=== PATIENT | male | born 1995 | race Caucasian/White ===

== ENCOUNTER 2024-12-28 14:17 | Outpatient (CLI) | payer OTHER, SELFPAY ==
--- NOTE | ~2024-12-28 | MR_ITS ---
EXAMINATION: MR cervical spine wo con DATE: 12/28/2024 14:50 INDICATION: Neck pain. TECHNIQUE: Magnetic resonance imaging (MRI) of the cervical spine was performed without intravenous contrast. COMPARISON: None FINDINGS: Bone alignment is normal. Vertebral body heights are normal. Intervertebral disc heights are normal. The spinal cord signal intensity is normal. The following disc levels are specifically discussed: C2-C3: The disc does not extend beyond the endplate margin. There is no uncovertebral joint osteoarthritis. There is no facet joint osteoarthritis. There is no neural foraminal stenosis. There is no central canal stenosis. C3-C4: The disc does not extend beyond the endplate margin. There is no uncovertebral joint osteoarthritis. There is mild left facet joint osteoarthritis. There is no neural foraminal stenosis. There is no central canal stenosis. C4-C5: The disc does not extend beyond the endplate margin. There is mild left uncovertebral joint osteoarthritis. There is mild bilateral facet joint osteoarthritis. There is no neural foraminal stenosis. There is no central canal stenosis. C5-C6: The disc does not extend beyond the endplate margin. There is mild left uncovertebral joint osteoarthritis. There is mild right facet joint osteoarthritis. There is no neural foraminal stenosis. There is no central canal stenosis. C6-C7: The disc does not extend beyond the endplate margin. There is mild left uncovertebral joint osteoarthritis. There is no facet joint osteoarthritis. There is no neural foraminal stenosis. There is no central canal stenosis. C7-T1: The disc does not extend beyond the endplate margin. There is no uncovertebral joint osteoarthritis. There is mild bilateral facet joint osteoarthritis. There is no neural foraminal stenosis. There is no central canal stenosis. IMPRESSION: 1. Mild cervical spondylosis. Reviewed, dictated and finalized at location E.
== END 2024-12-28 14:18 | disposition home or self-care (01) ==
LOC: MICIMG 14:19
PROVIDERS: Visit Provider Orthopaedic Surgery
DX: M47.892 Other spondylosis, cervical region (principal)
CPT/HCPCS: 72141